=== PATIENT | male | born 1970 | race Caucasian/White ===

== ENCOUNTER 2016-08-22 09:04 | Emergency (ER) | payer OTHER ==
[2016-08-22] MEDS ORDERED: G.I. COCKTAIL PO ONE (10:10)
[2016-08-22] MEDS ORDERED: PROTONIX PO ONE (10:10)
--- NOTE | 2016-08-22 10:11 | PROVIDER DOCUMENTATION ---
HPI-Abdominal Pain/GI Problem - General Chief Complaint: Abdominal Pain Stated Complaint: EPIGASTRIC PAIN Time Seen by Provider: 08/22/16 09:59 Source: patient Allergies/Adverse Reactions: Patient Allergies Allergy/AdvReac Type Severity Reaction Status Date / Time No Known Allergies Allergy Verified 08/22/16 09:51 Home Medications: Home Medication List Medication Instructions Recorded Confirmed Last Taken Type Meloxicam [Mobic] 7.5 mg PO DAILY 08/22/16 08/22/16 Unknown History Phentermine HCl 37.5 mg PO DAILY 08/22/16 08/22/16 Unknown History Testosterone Cypionate 200 mg IM TONIGHT 08/22/16 08/22/16 Unknown History - History of Present Illness-ABD Nature of Presenting Problems: Pt is 46 y/o M presents to the ED with epigastric pain. Pt states pain has been present since coming back from [place]. Pt states the pain is a dull pain. Pt states taking Pepcid with no relief. Pt states pain sometimes radiates to back. Pt denies F or chills. Pt denies blood in stool. Pt states N but denies V and D. Abdominal Pain Onset Location: reports: RUQ, epigastric Pain Radiation: reports: back Quality of Pain: reports: aching, dull Severity in ED: reports: mild Onset/Duration: reports: unsure Timing: reports: still present, intermittent Activities at Onset: reports: light activity Exposure to sick contacts?: No Modifying Factors: improves with: nothing Associated Symptoms: reports: back/neck pain (back pain), nausea. denies: anxiety, arm pain, chest pain, constipation, cough, diaphoresis, diarrhea, dizziness, EENT symptoms, fatigue, fever/chills, genitourinary problems, headaches, heartburn, joint pain, loss of appetite, malaise, muscle aches, sinus congestion/drainage, rash, seizure, shortness of breath, sensory/motor loss, pain with inspiration, swelling/mass in abdomen, syncope, vomiting, weakness, trouble walking Last BM: unsure Dark Stools Present?: reports: none noticed Rectal Bleeding: reports: none Rectal Pain: reports: none Emesis Description: reports: none Bruising or Bleeding Gums?: No Similar Symptoms Previously?: Yes Recently seen or treated by another doctor?: No Review of Systems - Adult - REVIEW OF SYSTEMS - ADULT Constitutional: reports: no symptoms reported Eyes: reports: no symptoms reported Ears, Nose, Mouth & Throat: reports: no symptoms reported Cardiovascular: reports: no symptoms reported Respiratory: reports: no symptoms reported Gastrointestinal: reports: abdominal pain, nausea. denies: diarrhea, vomiting Genitourinary: reports: no symptoms reported Musculoskeletal: reports: no symptoms reported Integumentary: reports: no symptoms reported Neurological: reports: no symptoms reported Psychiatric: reports: no symptoms reported Endocrine: reports: no symptoms reported Hematologic/Lymphatic: reports: no symptoms reported Allergic/Immunologic: reports: no symptoms reported All Other Systems: Reviewed and Negative Past History - Adult - PAST MEDICAL HISTORY-ADULT Review of Records: reports: Nursing Assessment Review, Medications Reviewed, Social history reviewed & non-contributory. Major Childhood Illnesses: reports: denies history Cardiovascular: reports: denies history Respiratory: reports: denies history Gastrointestinal: reports: denies history Obstetrical/Gynecological: reports: denies history Genitourinary: reports: denies history Musculoskeletal: reports: arthritis Neurological: reports: denies history Endocrine/Immune: reports: denies history Other Conditions: reports: denies history - PRIOR SURGERIES/PROCEDURES Surgical/Procedure History: reports: hernia repair - IMMUNIZATION STATUS Childhood Immunizations: See Nurse Assessment Flu Vaccine: See Nurse Assessment - FAMILY HISTORY Family History: reviewed, not pertinent - SOCIAL HISTORY Smoking: quit less than 1 year, cigarettes Substance Use: alcohol Alcohol Use Frequency: occasionally Number of drinks per typical drinking period:: 2 drinks Living Situation: family Physical Exam-General - PHYSICAL EXAM-ADULT Initial Vital Signs Reviewed: Yes - CONSTITUTIONAL General Appearance: appears well, alert, no apparent distress - EYES Eyes: PERRL/EOMI, pink conjunctivae, fundi clear, no AV nicking - HEAD, EARS, NOSE, MOUTH & THROAT HENMT: normocephalic/atraumatic, moist mucous membranes, normal ENT inspection, TMs normal, pharynx normal - NECK Neck: non-tender, full range of motion, supple, normal inspection - RESPIRATORY Respiratory: chest non-tender, lungs clear, normal breath sounds, no pleuratic chest pain, no respiratory distress, no accessory muscle use - CARDIOVASCULAR Cardiovascular: normal peripheral pulses, regular rate, rhythm, no edema, no gallop, no JVD, no murmur - GASTROINTESTINAL (ABDOMEN) Abdominal Exam: soft, no organomegaly, no pulsatile mass, abnormal bowel sounds (hyper active), tenderness (epigastric and RUQ) - LYMPHATIC Lymphatic: no adenopathy - MUSCULOSKELETAL Back Exam: normal inspection, no CVA tenderness, no vertebral tenderness Extremity: normal range of motion, non-tender, normal gait, normal inspection, no pedal edema, no calf tenderness, normal capillary refill - SKIN Integumentary: normal color, normal turgor, warm/dry - NEUROLOGIC Neurologic: grossly normal - PSYCHIATRIC Psych/Mental Status: normal mood/affect, oriented x 3 Progress - PLAN OF CARE/RESULTS Progress/Plan/Lab Results: Orders Category Date Time Status FLAT/UPRIGHT ABD/1 VIEW CHEST [RAD] Stat Exams 08/22/16 10:07 Ordered US GB < RUQ (LIMITED) [US] Stat Exams 08/22/16 10:07 Ordered CBC WITH ELECTRONIC DIFF [HEME] Stat Lab 08/22/16 10:04 Ordered CMP [COMPREHENSIVE METABOLIC PANEL] [CHEM] Stat Lab 08/22/16 10:04 Ordered H PYLORI ANTIGEN STOOL [[place]] Stat Lab 08/22/16 10:08 Ordered Lido/Chung Alk/Al&mg Hydrox [G.i. Cocktail] Med 08/22/16 10:10 Discontinued 30 ml PO NOW ONE Pantoprazole [Protonix] Med 08/22/16 10:10 Discontinued 40 mg PO NOW ONE Vital Signs - 24 hr 08/22/16 09:46 Temperature 97.9 F Pulse Rate 78 Respiratory 16 Rate Blood Pressure 147/090 O2 Sat by Pulse 97 Oximetry Laboratory Tests 08/22/16 08/22/16 10:19 10:19 WBC 8.41 RBC 5.82 Hgb 17.9 Hct 51.7 MCV 88.8 MCH 30.8 MCHC 34.6 RDW Std Deviation 13.2 Plt Count 161 MPV 11.5 H Immature Gran % (Auto) 0.6 H Neut % (Auto) 62.3 Lymph % (Auto) 22.9 [place] % (Auto) 10.1 H Eos % (Auto) 3.4 Baso % (Auto) 0.7 Immature Gran # (Auto) 0.05 H Neut # (Auto) 5.23 Lymph # (Auto) 1.93 [place]iken # (Auto) 0.85 H Eos # (Auto) 0.29 Baso # (Auto) 0.06 Sodium 139 Potassium 4.4 Chloride 103 Carbon Dioxide 29 Anion Gap 7 BUN 14 Creatinine 1.1 Estimated GFR/1.73 m2 > 60 BUN/Creatinine Ratio 13 Glucose 91 Calculated Osmolality 278 Calcium 9.3 Total Bilirubin 0.40 AST 24 ALT 36 Alkaline Phosphatase 46 Total Protein 6.7 Albumin 4.0 Globulin 3.0 Albumin/Globulin Ratio 1.0 - XRAY 1 XRAY: Bilateral XRAY Study: Chest, Abdomen Impression: Abnormal (nonspecific bowel gas pattern; hiatal hernia) - ULTRASOUND (By Radiology) 1 US Study: Gallbladder Impression: Normal US Results: normal-appearing gallbladder; no gallstones seen Departure - Departure Time of Disposition Order: 11:24 DIAGNOSIS: Helicobacter pylori (H. pylori) Disposition: HOME 01 Certified Medical Emergency: Emergent Condition: Stable Additional Instructions: ED Follow Up Instructions: You have been treated by a care provider in the Emergency Department. These instructions are being provided to you so you can have an understanding of how to care for yourself upon discharge. Upon discharge from the Emergency Department, you are responsible for making arrangements for follow-up care by a physician of your choice. Take all prescribed medications as directed. Return to the Emergency Department immediately for any new or worsening symptoms. You may call the Physician Referral phone number at [phone] to obtain a list of Physicians who are taking new patients. Referrals: Jaswant Dickey MD [Primary Care Provider] - Attestation - Scribe Verification/Attestation Scribe:: Roberta Smith Acting as Scribe for:: Corinne Castorena Scribe documention review:: This chart was documented by a scribe and accurately reflects the service the provider performed and the decisions made by the provider.
[2016-08-22 10:24] LABS: MANUAL DIFF NEEDED? NO
[2016-08-22 10:25] LABS: BASO% 0.7 % (0.0-0.8); EOS# 0.29 X1000 (0.0-0.7); EOS% 3.4 % (0.0-10.0); HEMATOCRIT 51.7 % (42.0-52.0); HEMOGLOBIN 17.9 g/dL (14.0-18.0); IMM GRAN# 0.05 X1000 (0.0-0.04); IMM GRAN% 0.6 % (0.0-0.5); LYMPH# 1.93 X1000 (1.2-3.4); LYMPH% 22.9 % (20.5-51.1); MCH 30.8 PG (27-31); MCHC 34.6 g/dL (33-37); MCV 88.8 FL (81-99); MONO# 0.85 X1000 (0.11-0.59); MONO% 10.1 % (1.7-9.3); MPV 11.5 FL (7.4-10.4); NEUT% 62.3 % (42.2-75.2); PLT 161 X1000 (130-400); RBC 5.82 XMIL (4.7-6.1)
[2016-08-22 10:50] LABS: AGAP 7; ALKALINE PHOSPHATASE 46 U/L (32-122); BUN 14 mg/dL (8-22); CALCIUM 9.3 mg/dL (8.8-10.2); CHLORIDE 103 mmol/L (98-107); COSMO 278; GOT 24 U/L (10-34); GPT 36 U/L (10-44); POTASSIUM 4.4 mmol/L (3.5-5.1); SODIUM 139 mmol/L (136-145); TCO2 29 mmol/L (25-35); TOTAL PROTEIN 6.7 g/dL (6.3-8.3)
[2016-08-22 11:47] VITALS: BP 147/92
--- NOTE | 2016-08-22 15:00 | Diag Imaging Result Document ---
PROCEDURE NAME: FLAT/UPRIGHT ABD/1 VIEW CHEST - 08/22/2016 SUPINE AND UPRIGHT ABDOMEN WITH ONE-VIEW CHEST: FINDINGS: There are gas and retained fecal debris visible in mostly nondistended colon. There is gas visible in scattered nondistended to slightly distended small bowel. There is no substantial gaseous bowel distention identified. There is no free air identified. There are no unusual calcifications identified. Upright chest shows normal heart size. There is an air-containing retrocardiac density compatible with small to moderate sized hiatal hernia. The lungs appear clear. There is no pleural effusion or pneumothorax seen. IMPRESSION: 1. Nonspecific bowel gas pattern. 2. Small to moderate size hiatal hernia. 3. No evidence of acute cardiopulmonary disease.
--- NOTE | 2016-08-22 15:29 | Diag Imaging Result Document ---
PROCEDURE NAME: US GB < RUQ (LIMITED) - 08/22/2016 ULTRASOUND OF THE GALLBLADDER: FINDINGS: The gallbladder is visualized and demonstrates no abnormalities. There is no evidence of gallstones. The technologist reports negative sonographic Das sign. There is no pericholecystic fluid seen. The common bile duct is normal caliber at 3 mm. There are no abnormalities of the liver or right kidney identified. The pancreas and abdominal aorta are obscured by artifacts from bowel gas. IMPRESSION: No visible gallbladder abnormality. Normal caliber common bile duct at 3 mm.
== END 2016-08-22 11:47 | disposition home or self-care (01) ==
LOC: P.ED 09:04
DX: A04.8 Other specified bacterial intestinal infections (principal); R10.13 Epigastric pain; M54.9 Dorsalgia, unspecified; R11.0 Nausea; R10.11 Right upper quadrant pain; R19.12 Hyperactive bowel sounds; R10.816 Epigastric abdominal tenderness; R10.811 Right upper quadrant abdominal tenderness; M19.90 Unspecified osteoarthritis, unspecified site; Z87.891 Personal history of nicotine dependence
CPT/HCPCS: 36415; 74022; 76705; 80053; 85025; 99283